=== PATIENT | male | born 1980 | race Caucasian/White ===

== ENCOUNTER 2018-08-08 13:16 | Emergency (ER) | payer MEDICAID ==
--- NOTE | 2018-08-08 16:19 | EDM.PDOC ---
ED HPI GENERAL MEDICAL PROBLEM - General Chief Complaint: Abdominal Pain Stated Complaint: RT SIDE PAIN Time Seen by Provider: 08/08/18 14:50 Source of Information: Reports: Patient - History of Present Illness INITIAL COMMENTS - FREE TEXT/NARRATIVE: 38-year-old otherwise healthy male presents with concerns of intermittent right upper quadrant and epigastric pain for several weeks. He presents today because the pain was particularly severe earlier in the day. He describes the pain as right upper quadrant that radiates towards the epigastrium, at times also seems to be in the epigastrium primarily. It is worse with eating and has caused a decrease in his oral intake. He denies any fevers or chills. He has no history of abdominal surgeries. No nausea or vomiting. No bloody or melanotic stools. He estimates he drinks approximately a sixpack of alcohol a day, no history of PUD. - Related Data Allergies Allergy/AdvReac Type Severity Reaction Status Date / Time doxycycline Allergy Rash Verified 08/08/18 13:42 Home Meds: Home Meds NK [No Known Home Meds] 08/08/18 [History] Past Medical History - Past Health History Medical/Surgical History: Denies Medical/Surgical History Social & Family History - Tobacco Use Smoking Status *Q: Current Every Day Smoker Years of Tobacco use: 15 Packs/Tins Daily: 1 - Caffeine Use Caffeine Use: Reports: None - Alcohol Use Days Per Week of Alcohol Use: 7 Number of Drinks Per Day: 6 Total Drinks Per Week: 42 - Recreational Drug Use Recreational Drug Use: Yes Recreational Drug Type: Reports: Marijuana/Hashish ED ROS GENERAL - Review of Systems Review Of Systems: See Below Constitutional: Reports: No Symptoms HEENT: Reports: No Symptoms Respiratory: Reports: No Symptoms Cardiovascular: Reports: No Symptoms Endocrine: Reports: No Symptoms GI/Abdominal: Reports: Abdominal Pain : Reports: No Symptoms Musculoskeletal: Reports: No Symptoms Skin: Reports: No Symptoms Neurological: Reports: No Symptoms Psychiatric: Reports: No Symptoms Hematologic/Lymphatic: Reports: No Symptoms Immunologic: Reports: No Symptoms ED EXAM, GI/ABD - Physical Exam Exam: See Below Exam Limited By: No Limitations General Appearance: Alert, No Apparent Distress Ears: Normal External Exam Nose: Normal Inspection Throat/Mouth: Normal Inspection Head: Atraumatic, Normocephalic Neck: Normal Inspection Respiratory/Chest: No Respiratory Distress, Lungs Clear Cardiovascular: Regular Rate, Rhythm GI/Abdominal Exam: Soft, Other (mild RUQ tenderness). No: Guarding Back Exam: Normal Inspection Extremities: Normal Inspection Neurological: Alert, Oriented Psychiatric: Normal Affect, Normal Mood Skin Exam: Warm, Dry Course - Vital Signs Last Recorded V/S: Last Vital Signs Temp 36.8 C 08/08/18 13:49 Pulse 88 08/08/18 14:41 Resp 16 08/08/18 14:41 BP 137/90 08/08/18 14:41 Pulse Ox 97 08/08/18 14:41 - Orders/Labs/Meds Orders: Active Orders 24 hr Category Date Time Status Abdomen Ltd [US] Stat Exams 08/08/18 15:11 Taken CHLAMYDIA/GC AMPLIFICATION Stat Lab 08/08/18 14:00 Received Labs: Laboratory Tests 08/08/18 08/08/18 08/08/18 Range/Units 14:41 14:41 15:32 WBC 9.8 (4.5-11.0) K/uL RBC 5.19 (4.30-5.90) M/uL Hgb 16.8 H (12.0-15.0) g/dL Hct 49.2 (40.0-54.0) % MCV 95 (80-98) fL MCH 32 H (27-31) pg MCHC 34 (32-36) % Plt Count 217 (150-400) K/uL Sodium 139 L (140-148) mmol/L Potassium 4.6 (3.6-5.2) mmol/L Chloride 100 (100-108) mmol/L Carbon Dioxide 28 (21-32) mmol/L Anion Gap 15.6 H (5.0-14.0) mmol/L BUN 8 (7-18) mg/dL Creatinine 1.0 (0.8-1.3) mg/dL Est Cr Clr Drug Dosing 116.45 mL/min Estimated GFR (MDRD) > 60 (>60) Glucose 89 (74-106) mg/dL Calcium 9.4 (8.5-10.1) mg/dL Total Bilirubin 1.0 (0.2-1.0) mg/dL AST 41 H (15-37) U/L ALT 76 (12-78) U/L Alkaline Phosphatase 86 (46-116) U/L Total Protein 7.8 (6.4-8.2) g/dL Albumin 3.9 (3.4-5.0) g/dL Globulin 3.9 H (2.3-3.5) g/dL Albumin/Globulin Ratio 1.0 L (1.2-2.2) Lipase 125 (73-393) U/L Urine Color [place] Urine Appearance Cloudy Urine pH 6.0 (4.5-8.0) Ur Specific [place] 1.015 (1.008-1.030) Urine Protein Trace (NEGATIVE) mg/dL Urine Glucose (UA) Normal (NEGATIVE) mg/dL Urine Ketones 50 H (NEGATIVE) mg/dL Urine Occult Blood Negative (NEGATIVE) Urine Nitrite Negative (NEGAITVE) Urine Bilirubin Moderate (NEGATIVE) Urine Urobilinogen 4 (NORMAL) mg/dL Ur Leukocyte Esterase Negative (NEGATIVE) Urine RBC 0-5 (0-5) Urine WBC 0-5 (0-5) Ur Epithelial Cells Rare Amorphous Sediment Rare Urine Bacteria Not seen Urine Mucus Rare - Re-Assessments/Exams Free Text/Narrative Re-Assessment/Exam: 38-year-old male, otherwise healthy presents to concerns of intermittent right upper quadrant epigastric pain. Abdominal labs are unremarkable. Initial concern for cholelithiasis, her ultrasound showed only fatty liver. Was having some urinary symptoms but UA is unremarkable. Although epigastric discomfort is present I believe this is not likely cardiac in nature nor is any workup for supradiaphragmatic process warranted. Given his alcohol intake inscription location of the pain, but this is most likely an alcoholic gastritis. We discussed symptomatic control with ranitidine and decreasing his alcohol intake. 08/08/18 16:23 Departure - Departure Time of Disposition: 16:14 Disposition: Home, Self-Care 01 Clinical Impression: Gastritis Qualifiers: Gastritis type: alcoholic Chronicity: unspecified Gastritis bleeding: without bleeding Qualified Code(s): K29.20 - Alcoholic gastritis without bleeding - Discharge Information *PRESCRIPTION DRUG MONITORING PROGRAM REVIEWED*: No *COPY OF PRESCRIPTION DRUG MONITORING REPORT IN PATIENT RENET[place]: No Referrals: PCP,None [Primary Care Provider] - Forms: ED Department Discharge Additional Instructions: We believe your symptoms are due to dyspepsia. Alcohol use contributes to this. You can trial a medication called ranitidine (zantac) for your symptoms We suggest you decrease your alcohol intake Make a follow up appointment with a primary doctor - My Orders Last 24 Hours: My Active Orders 08/08/18 14:00 CHLAMYDIA/GC AMPLIFICATION Stat 08/08/18 15:11 Abdomen Ltd [US] Stat - Assessment/Plan Last 24 Hours: My Active Orders 08/08/18 14:00 CHLAMYDIA/GC AMPLIFICATION Stat 08/08/18 15:11 Abdomen Ltd [US] Stat
[2018-08-11 07:47] LABS: CHLAMYDIA TRACHOMATIS, NAA Negative (Negative); NEISSERIA GONORRHOEAE, NAA Negative (Negative)
== END 2018-08-08 17:11 | disposition home or self-care (01) ==
LOC: JP.ED 13:16
DX: K29.20 Alcoholic gastritis without bleeding (principal); F17.210 Nicotine dependence, cigarettes, uncomplicated; Z88.1 Allergy status to other antibiotic agents
CPT/HCPCS: 36415; 76705; 80053; 81001; 83690; 85027; 87491; 87591; 99284-25

== ENCOUNTER 2018-09-29 12:47 | Emergency (ER) | payer MEDICAID ==
--- NOTE | 2018-09-29 14:43 | EDM.PDOC ---
<Nicole Melendez - Last Filed: 09/29/18 15:12> ED HPI GENERAL MEDICAL PROBLEM - General Chief Complaint: Drug or Alcohol Abuse Stated Complaint: VISION,LEFT SIDE NUMB,FAST HEART RATE Time Seen by Provider: 09/29/18 14:20 Source of Information: Reports: Patient History Limitations: Reports: No Limitations - History of Present Illness INITIAL COMMENTS - FREE TEXT/NARRATIVE: Paul Camejo is a 38 year old male who presents to the E.D. with concerns of a syncopal-like episode. He has a past history of alcohol abuse, denies any current medical problems and does not take any medications. He states he has not been to a healthcare provider in about 2 years. He states that yesterday he drank a 24 pack of beer and 1 pint of vodka. He then went to sleep for about 10 hours. This morning he woke up and went to work for a couple of hours then came home and drank one beer. He had an episode of emesis after the beer. He states he was then walking up the stairs and felt that he was going to faint. He states his vision went black, his left side went numb and his heart rate increased. He says the left sided weakness is intermittent and has been waxing and waning since the episode this AM. He states the episode only lasted a couple of seconds, but happened about 3 other times this morning. He has a daily frontal headache every morning that goes away with time. He states it has been a chronic issue for him. He does not treat the headache with anything. He states he has RUQ pain about every time he drinks and its about a 1 out of 10 on the pain scale. He denies any change of stool, changes in urination, or episodes of LOC. He states he normally does drink about 8-10 beers per day. He denies a syncopal episode in the past. He does smoke 1 pack of cigarettes per day and uses marijuana occasionally. He denies any past history of clotting disorders. denies Pain Score (Numeric/FACES): 0 - Related Data Allergies Allergy/AdvReac Type Severity Reaction Status Date / Time doxycycline Allergy Rash Verified 09/29/18 13:37 Home Meds: Home Meds NK [No Known Home Meds] 08/08/18 [History] Past Medical History - Past Health History Medical/Surgical History: Denies Medical/Surgical History Cardiovascular History: Reports: High Cholesterol Gastrointestinal History: Reports: Other (See Below) Other Gastrointestinal History: rrecent abdomenal pain Psychiatric History: Reports: Addiction, Other (See Below) Other Psychiatric History: etoh addiction Endocrine/Metabolic History: Reports: Other (See Below) Other Endocrine/Metabolic History: Lymes in past - Infectious Disease History Infectious Disease History: Reports: Chicken Pox Social & Family History - Tobacco Use Smoking Status *Q: Current Every Day Smoker Years of Tobacco use: 25 Packs/Tins Daily: 1 Used Tobacco, but Quit: No Second Hand Smoke Exposure: Yes - Caffeine Use Caffeine Use: Reports: Coffee, Tea - Alcohol Use Days Per Week of Alcohol Use: 7 Number of Drinks Per Day: 6 Total Drinks Per Week: 42 Date of Last Drink: 09/29/18 Time of Last Drink: 12:00 - Recreational Drug Use Recreational Drug Use: Yes Drug Use in Last 12 Months: Yes Recreational Drug Type: Reports: Marijuana/Hashish Recreational Drug Use Frequency: Monthly ED ROS GENERAL - Review of Systems Review Of Systems: ROS reveals no pertinent complaints other than HPI. - Physical Exam Exam: See Below Exam Limited By: No Limitations General Appearance: Alert, WD/WN, No Apparent Distress Ears: Normal External Exam, Normal Canal, Hearing Grossly Normal, Normal TMs Nose: Normal Inspection, Normal Mucosa, No Blood Throat/Mouth: Normal Inspection, Normal Lips, Normal Teeth, Normal Gums, Normal Oropharynx, Normal Voice Head Exam: Atraumatic, Normocephalic Neck: Normal Inspection, Supple, Non-Tender, Full Range of Motion Respiratory/Chest: No Respiratory Distress, Lungs Clear, Normal Breath Sounds, No Accessory Muscle Use Cardiovascular: Regular Rate, Rhythm, No Edema, No JVD, No Murmur GI/Abdominal: Soft, Non-Tender, No Organomegaly Neuro Exam (Abbreviated): Alert, Oriented, CN II-XII Intact, Normal Cognition, Normal Gait, No Motor/Sensory Deficits Back Exam: Normal Inspection Extremities: Normal Inspection, No Pedal Edema Psychiatric: Normal Affect, Normal Mood Skin Exam: Warm, Intact, Normal Color, No Rash Course - Vital Signs Last Recorded V/S: Last Vital Signs Temp 97.2 F 09/29/18 13:45 Pulse 91 09/29/18 13:45 Resp 16 09/29/18 13:45 BP 163/95 H 09/29/18 13:45 Pulse Ox 96 09/29/18 13:45 - Orders/Labs/Meds Labs: Laboratory Tests 09/29/18 09/29/18 09/29/18 Range/Units 14:26 14:26 14:26 WBC 7.5 (4.5-11.0) K/uL RBC 5.20 (4.30-5.90) M/uL Hgb 16.9 H (12.0-15.0) g/dL Hct 49.8 (40.0-54.0) % MCV 96 (80-98) fL MCH 33 H (27-31) pg MCHC 34 (32-36) % Plt Count 253 (150-400) K/uL Neut % (Auto) 70 H (36-66) % Lymph % (Auto) 22 L (24-44) % [place] % (Auto) 6 (2-6) % Eos % (Auto) 1 L (2-4) % Baso % (Auto) 1 (0-1) % PT 10.0 (9.5-12.0) sec INR 0.90 (0.80-1.20) D-Dimer, Quantitative < 100 (0.0-400.0) ng/mL Sodium 137 L (140-148) mmol/L Potassium 4.4 (3.6-5.2) mmol/L Chloride 101 (100-108) mmol/L Carbon Dioxide 25 (21-32) mmol/L Anion Gap 15.4 H (5.0-14.0) mmol/L BUN 8 (7-18) mg/dL Creatinine 1.0 (0.8-1.3) mg/dL Est Cr Clr Drug Dosing 116.45 mL/min Estimated GFR (MDRD) > 60 (>60) Glucose 82 (74-106) mg/dL Calcium 8.9 (8.5-10.1) mg/dL Total Bilirubin 0.5 (0.2-1.0) mg/dL AST 67 H (15-37) U/L ALT 134 H (12-78) U/L Alkaline Phosphatase 69 (46-116) U/L Total Protein 7.8 (6.4-8.2) g/dL Albumin 4.1 (3.4-5.0) g/dL Globulin 3.7 H (2.3-3.5) g/dL Albumin/Globulin Ratio 1.1 L (1.2-2.2) Lipase (73-393) U/L Urine Opiates Screen (NEGATIVE) Ur Oxycodone Screen (NEGATIVE) Urine Methadone Screen (NEGATIVE) Ur Propoxyphene Screen (NEGATIVE) Ur Barbiturates Screen (NEGATIVE) Ur Tricyclics Screen (NEGATIVE) Ur Phencyclidine Scrn (NEGATIVE) Ur Amphetamine Screen (NEGATIVE) U Methamphetamines Scrn (NEGATIVE) Urine MDMA Screen (NEGATIVE) U Benzodiazepines Scrn (NEGATIVE) U Cocaine Metab Screen (NEGATIVE) U Marijuana (THC) Screen (NEGATIVE) Ethyl Alcohol mg/dL 09/29/18 09/29/18 09/29/18 Range/Units 14:26 15:13 15:38 WBC (4.5-11.0) K/uL RBC (4.30-5.90) M/uL Hgb (12.0-15.0) g/dL Hct (40.0-54.0) % MCV (80-98) fL MCH (27-31) pg MCHC (32-36) % Plt Count (150-400) K/uL Neut % (Auto) (36-66) % Lymph % (Auto) (24-44) % [place] % (Auto) (2-6) % Eos % (Auto) (2-4) % Baso % (Auto) (0-1) % PT (9.5-12.0) sec INR (0.80-1.20) D-Dimer, Quantitative (0.0-400.0) ng/mL Sodium (140-148) mmol/L Potassium (3.6-5.2) mmol/L Chloride (100-108) mmol/L Carbon Dioxide (21-32) mmol/L Anion Gap (5.0-14.0) mmol/L BUN (7-18) mg/dL Creatinine (0.8-1.3) mg/dL Est Cr Clr Drug Dosing mL/min Estimated GFR (MDRD) (>60) Glucose (74-106) mg/dL Calcium (8.5-10.1) mg/dL Total Bilirubin (0.2-1.0) mg/dL AST (15-37) U/L ALT (12-78) U/L Alkaline Phosphatase (46-116) U/L Total Protein (6.4-8.2) g/dL Albumin (3.4-5.0) g/dL Globulin (2.3-3.5) g/dL Albumin/Globulin Ratio (1.2-2.2) Lipase 124 (73-393) U/L Urine Opiates Screen Negative (NEGATIVE) Ur Oxycodone Screen Negative (NEGATIVE) Urine Methadone Screen Negative (NEGATIVE) Ur Propoxyphene Screen Negative (NEGATIVE) Ur Barbiturates Screen Negative (NEGATIVE) Ur Tricyclics Screen Negative (NEGATIVE) Ur Phencyclidine Scrn Negative (NEGATIVE) Ur Amphetamine Screen Negative (NEGATIVE) U Methamphetamines Scrn Negative (NEGATIVE) Urine MDMA Screen Negative (NEGATIVE) U Benzodiazepines Scrn Negative (NEGATIVE) U Cocaine Metab Screen Negative (NEGATIVE) U Marijuana (THC) Screen Presumptive positive H (NEGATIVE) Ethyl Alcohol 80 mg/dL Departure - Departure Disposition: Home, Self-Care 01 Clinical Impression: Alcohol abuse - Discharge Information Referrals: PCP,None [Primary Care Provider] - Forms: ED Department Discharge Additional Instructions: Please follow-up with your [facility] addiction social worker for available treatment programs, call return to the emergency department worsening of symptoms <OfficerMacario - Last Filed: 09/29/18 16:02> - Physical Exam Text/Narrative:: Agree with exam below Departure - Departure Time of Disposition: 16:02 Condition: Fair - Assessment/Plan Plan: Assessment Acuity = acute on chronic Site and laterality = alcohol abuse and intoxication Etiology = EtOH Manifestations = none Location of injury = Home Lab values = CBC, CMP unremarkable except for elevated liver enzymes at 67 AST at 134 ALTs, alcohol is currently at 80 d-dimer was negative Plan I did review lab work with him talk to him about alcohol treatments he is a member of [facility] of which she is going to follow-up as services in the [facility] for further treatment help he declined detox at this time This note was dictated using EUDOWEB voice recognition software please call with any questions on syntax or grammar.
== END 2018-09-29 16:10 | disposition home or self-care (01) ==
LOC: JP.ED 12:48
DX: F10.129 Alcohol abuse with intoxication, unspecified (principal); Y90.4 Blood alcohol level of 80-99 mg/100 ml; E78.00 Pure hypercholesterolemia, unspecified; F17.210 Nicotine dependence, cigarettes, uncomplicated; Z88.1 Allergy status to other antibiotic agents
CPT/HCPCS: 36415; 80053; 80305; 83690; 85025; 85379; 85610; 99284; G0480

== ENCOUNTER 2021-06-13 16:05 | Emergency (ER) | payer MEDICAID ==
--- NOTE | 2021-06-13 17:37 | EDM.PDOC ---
<Francis Leon - Last Filed: 06/13/21 19:23> ED HPI GENERAL MEDICAL PROBLEM - General Chief Complaint: ENT Problem Stated Complaint: NOSE BLEEDS Time Seen by Provider: 06/13/21 17:23 Source of Information: Reports: Patient History Limitations: Reports: No Limitations - History of Present Illness INITIAL COMMENTS - FREE TEXT/NARRATIVE: Paul is a 40-year-old male presenting the ED with a multitude of complaints including intermittent epistaxis over the last several days. The patient recently underwent an angioplasty with multiple stent placement and is on Brilinta. He states over the last couple of nights he is had episodes of epistaxis resulting in hematemesis. He is also been experiencing sharp, stabbing chest pains since undergoing the angioplasty. The patient has been taking hydrocodone for knee pain after dropping a water heater on his knee. His last episode of epistaxis was at 1:30 this morning. He denies any fever, ch ills, pleurodynia, nausea, vomiting, or diaphoresis. His angioplasty was done at [facility] in [place], [place]. - Related Data Allergies Allergy/AdvReac Type Severity Reaction Status Date / Time doxycycline Allergy Rash Verified 09/29/18 13:37 Home Meds: Home Meds Aspirin 81 mg PO DAILY 06/13/21 [History] Nitroglycerin 0.4 mg SL ASDIRECTED 06/13/21 [History] Ticagrelor [Brilinta] 90 mg PO Q12HR 06/13/21 [History] atorvaSTATin [Lipitor] 80 mg PO BEDTIME 06/13/21 [History] carvediloL [Carvedilol] 6.25 mg PO BID 06/13/21 [History] oxyCODONE 5 mg PO Q6HR 06/13/21 [History] Past Medical History - Past Health History Medical/Surgical History: Denies Medical/Surgical History Cardiovascular History: Reports: High Cholesterol Gastrointestinal History: Reports: Other (See Below) Other Gastrointestinal History: rrecent abdomenal pain Psychiatric History: Reports: Addiction, Other (See Below) Other Psychiatric History: etoh addiction Endocrine/Metabolic History: Reports: Other (See Below) Other Endocrine/Metabolic History: Lymes in past - Infectious Disease History Infectious Disease History: Reports: Chicken Pox Social & Family History - Caffeine Use Caffeine Use: Reports: Coffee, Tea ED ROS GENERAL - Review of Systems Review Of Systems: See Below Constitutional: Reports: No Symptoms HEENT: Reports: Nosebleed (Intermittent epistaxis over the last 3 days. Patient is on Brilinta following angioplasty 2 weeks ago.) Respiratory: Reports: No Symptoms Cardiovascular: Reports: Chest Pain (Sharp, stabbing episodes of chest pain) Endocrine: Reports: No Symptoms GI/Abdominal: Reports: No Symptoms : Reports: No Symptoms Musculoskeletal: Reports: No Symptoms Skin: Reports: No Symptoms Neurological: Reports: No Symptoms Psychiatric: Reports: Anxiety Hematologic/Lymphatic: Reports: No Symptoms Immunologic: Reports: No Symptoms ED EXAM, GENERAL - Physical Exam Exam: See Below Exam Limited By: No Limitations General Appearance: Alert, No Apparent Distress, Anxious Eye Exam: Bilateral Eye: EOMI, PERRL Nose: Normal Inspection, Normal Mucosa, No Blood, Other (There is no clots identified in the nose. I do not see any areas on the nasal septum of bleeding. There is some inflammation of the nasal septum.) Throat/Mouth: Normal Inspection, Normal Oropharynx, Normal Voice, No Airway Compromise Head: Atraumatic, Normocephalic Neck: Normal Inspection, Supple Respiratory/Chest: No Respiratory Distress, Lungs Clear, Normal Breath Sounds Cardiovascular: Normal Peripheral Pulses, Regular Rate, Rhythm, No Murmur Peripheral Pulses: 2+: Radial (L), Radial (R), Posterior Tibial (L), Posterior Tibial (R) GI/Abdominal: Normal Bowel Sounds, Soft, Non-Tender Back Exam: Normal Inspection Extremities: Normal Inspection, Normal Range of Motion, Normal Capillary Refill Neurological: Alert, Oriented, Normal Cognition, No Motor/Sensory Deficits Psychiatric: Normal Affect, Normal Mood Skin Exam: Warm, Dry, Intact, Normal Color #1 Interpretation EKG Date: 06/13/21 Time: 17:30 Rhythm: NSR [place]: LAD-Left [place] Deviation P-Wave: Present QRS: Normal (Poor R wave progression in the precordial leads with late transition.) ST-T: Normal QT: Prolonged Comparison: NA - No Prior EKG Course - Re-Assessments/Exams Free Text/Narrative Re-Assessment/Exam: 06/13/21 18:57 is reviewed showing a leukocyte count of 10.5 with normal differential, hemoglobin of 15.3, hematocrit of 43.8 and a platelet count of 460,000. The comprehensive metabolic panel shows a sodium of 142, potassium 4.1, chloride 101, bicarbonate of 27, BUN of 14 with a creatinine of 1.1 and a glucose of 91. GFR is calculated greater than 60. Calcium is 9.1 with an AST of 26, ALT of 47, alkaline phosphatase of 126. Troponin is negative at less than 0.017. D-dimer is markedly elevated at 987.4. The patient is Covid, RSV, and influenza negative on the quadrivalent test. Elevation in his D-dimer despite being on Brilinta, the patient will go for a CT angiogram of the chest to rule out pulmonary emboli. There is nothing in his EKG to signify an acute infarct or injury. The patient is several weeks out from having 2 stents placed in his coronary arteries. 06/13/21 19:25 care of the patient be turned over to Dr. Pearson while awaiting for the patient undergo a CT angiogram of the chest for an elevated D-dimer. I anticipate that this will be negative and the patient will be able to be discharged home with atypical chest pain. The patient is on Brilinta he is not able to take any NSAIDs. He might benefit from a short course of steroids. Departure - Departure Disposition: Home, Self-Care 01 Clinical Impression: Recurrent epistaxis, Pleurisy Instructions: Nosebleed, Adult, [id number] Referrals: PCP,None [Primary Care Provider] - Forms: ED Department Discharge Care Plan Goals: Take prednisone as prescribed starting tomorrow morning, try to reduce smoking if possible, and use nasal moisturizers such as AYR spray to keep the nasal mucosa moist. Use external pressure if bleeding recurs and return if bleeding is persistent. Also consider rechecking with your regular doctor in 3 to 4 days if not improving satisfactorily on the prednisone. <Chris Pearson - Last Filed: 06/13/21 22:10> Course - Vital Signs Last Recorded V/S: Last Vital Signs Temp 98.3 F 06/13/21 17:34 Pulse 82 06/13/21 18:46 Resp 20 06/13/21 18:46 BP 141/90 H 06/13/21 18:46 Pulse Ox 98 06/13/21 18:46 - Orders/Labs/Meds Orders: Active Orders 24 hr Category Date Time Status Chest 1V Frontal [CR] Stat Exams 06/13/21 17:25 Taken Isolation [COMM] Stat Oth 06/13/21 17:25 Ordered EKG 12 Lead [EK] Routine Ther 06/13/21 17:24 Ordered Labs: Laboratory Tests 06/13/21 06/13/21 06/13/21 Range/Units 17:41 17:42 17:42 WBC 10.5 (4.5-11.0) K/uL RBC 4.78 (4.30-5.90) M/uL Hgb 15.3 H (12.0-15.0) g/dL Hct 43.8 (40.0-54.0) % MCV 92 (80-98) fL MCH 32 H (27-31) pg MCHC 35 (32-36) % Plt Count 460 H (150-400) K/uL Neut % (Auto) 58.9 (36-66) % Lymph % (Auto) 30.0 (24-44) % Bartholomew % (Auto) 8.9 H (2-6) % Eos % (Auto) 0.9 L (2-4) % Baso % (Auto) 1.3 H (0-1) % D-Dimer, Quantitative 987.44 H (0.0-500.0) ng/mL Sodium (140-148) mmol/L Potassium (3.6-5.2) mmol/L Chloride (100-108) mmol/L Carbon Dioxide (21-32) mmol/L Anion Gap (5.0-14.0) mmol/L BUN (7-18) mg/dL Creatinine (0.8-1.3) mg/dL Est Cr Clr Drug Dosing mL/min Estimated GFR (MDRD) (>60) Glucose (74-106) mg/dL Calcium (8.5-10.1) mg/dL Total Bilirubin (0.2-1.0) mg/dL AST (15-37) U/L ALT (12-78) U/L Alkaline Phosphatase (46-116) U/L Troponin I (0.000-0.056) ng/mL Total Protein (6.4-8.2) g/dL Albumin (3.4-5.0) g/dL Globulin (2.3-3.5) g/dL Albumin/Globulin Ratio (1.2-2.2) Influenza Type A RNA Negative (NEGATIVE) RSV RNA (INAAT) Negative (NEGATIVE) Influenza Type B RNA Negative (NEGATIVE) SARS-CoV-2 RNA (ZOILA) Negative (NEGATIVE) 06/13/21 Range/Units 17:42 WBC (4.5-11.0) K/uL RBC (4.30-5.90) M/uL Hgb (12.0-15.0) g/dL Hct (40.0-54.0) % MCV (80-98) fL MCH (27-31) pg MCHC (32-36) % Plt Count (150-400) K/uL Neut % (Auto) (36-66) % Lymph % (Auto) (24-44) % Bartholomew % (Auto) (2-6) % Eos % (Auto) (2-4) % Baso % (Auto) (0-1) % D-Dimer, Quantitative (0.0-500.0) ng/mL Sodium 142 (140-148) mmol/L Potassium 4.1 (3.6-5.2) mmol/L Chloride 101 (100-108) mmol/L Carbon Dioxide 27 (21-32) mmol/L Anion Gap 14.0 (5.0-14.0) mmol/L BUN 14 D (7-18) mg/dL Creatinine 1.1 (0.8-1.3) mg/dL Est Cr Clr Drug Dosing 103.79 mL/min Estimated GFR (MDRD) > 60 (>60) Glucose 91 (74-106) mg/dL Calcium 9.1 (8.5-10.1) mg/dL Total Bilirubin 0.9 D (0.2-1.0) mg/dL AST 26 (15-37) U/L ALT 47 (12-78) U/L Alkaline Phosphatase 126 H D (46-116) U/L Troponin I < 0.017 (0.000-0.056) ng/mL Total Protein 7.9 (6.4-8.2) g/dL Albumin 3.9 (3.4-5.0) g/dL Globulin 4.0 H (2.3-3.5) g/dL Albumin/Globulin Ratio 1.0 L (1.2-2.2) Influenza Type A RNA (NEGATIVE) RSV RNA (INAAT) (NEGATIVE) Influenza Type B RNA (NEGATIVE) SARS-CoV-2 RNA (ZOILA) (NEGATIVE) Meds: Medications Discontinued Medications Generic Name Dose Route Start Last Admin Trade Name Lopez PRN Reason Stop Dose Admin Sodium Chloride 100 mls @ 4 mls/sec 06/13/21 19:15 06/13/21 19:43 Normal Saline IV 4 mls/sec ASDIRECTED RICHARD Administration Iopamidol 100 ml 06/13/21 19:15 06/13/21 19:43 Iopamidol 755 Mg/Ml 100 Ml Bottle IV 100 ml . DIRECTED RICHARD Administration - Re-Assessments/Exams Free Text/Narrative Re-Assessment/Exam: 06/13/21 20:42 Care turned over from Dr. Leon pending CT of the chest with IV contrast. This showed mild diffuse inflammatory changes consistent with smoking, no PE or consolidations. Patient will be placed on 40 mg of prednisone daily for 5 days, and encouraged to keep his nose moist with AYR nasal spray. Departure - Departure Time of Disposition: 20:48 Sepsis Event Note (ED) - Focused Exam Vital Signs: Vital Signs Temp Pulse Resp BP Pulse Ox 06/13/21 18:46 82 20 141/90 H 98 06/13/21 17:48 88 14 145/82 H 98 06/13/21 17:34 98.3 F 85 14 162/94 H 98 06/13/21 17:12 98.3 F 85 14 162/94 H 98
[2021-06-13 18:19] LABS: CORONAVIRUS COVID-19 NAA NEGATIVE (NEGATIVE)
[2021-06-13] MEDS ORDERED: Sodium Chloride 0.9% 100 ML IV SCH (19:15)
[2021-06-13] MEDS ORDERED: Iopamidol 755 Mg/ML 100 ML Bottle IV SCH (19:15)
--- NOTE | 2021-06-13 20:36 | CRLCT ---
For Patients: As a result of the Century Cures Act, medical imaging exams and procedure reports are released immediately into your electronic medical record. You may view this report before your referring provider. If you have questions, please contact your health care provider. INDICATION: Chest pain. Elevated D-dimer. TECHNIQUE: CT chest PE was acquired with 100 cc Isovue 370 IV contrast. COMPARISON: None. FINDINGS: Heart and vasculature: No cardiomegaly, no pericardial effusion. There appears to be a right coronary artery stent present. No filling defects identified within the main, lobar, and contrast opacified portions of the segmental pulmonary arteries. Lungs and pleura: No evidence of pulmonary infarct. Calcified granuloma in the lingula. Scattered tiny centrilobular nodules throughout the lungs, suggestive of respiratory bronchiolitis-interstitial lung disease. Thyroid and lower neck: Subcentimeter thyroid nodules are noted. Mediastinum/deb: No lymphadenopathy. Chest wall: No axillary lymphadenopathy. Upper abdomen: No acute abnormality. Bones: No suspicious/aggressive focal osseous lesion. IMPRESSION: 1. No evidence of acute pulmonary embolus. 2. Scattered tiny centrilobular nodules throughout the lungs, suggestive of respiratory bronchiolitis-interstitial lung disease, query history of smoking. Please note that all CT scans at this facility use dose modulation, iterative reconstruction, and/or weight-based dosing when appropriate to reduce radiation dose to as low as reasonably achievable. Dictated by Papi Duckworth MD @ 06/13/2021 8:34:59 PM (Electronically Signed)
--- NOTE | 2021-06-14 09:13 | CR ---
CHEST: Portable 06/13/2021 at 5:56 PM CLINICAL HISTORY:Chest pain COMPARISON:None FINDINGS: There is a subcentimeter nodular focus in the lateral left midlung field. This may represent granuloma. No infiltrates or effusions are seen. Heart and pulmonary vascularity appear normal Impression: No acute cardio pelvic process Subcentimeter dense nodule in the left lateral midlung field. This may represent a granuloma. If patient has prior chest films this would be helpful. If submitted and addendum report will be issued If no prior chest films are available, noncontrast CT chest should be considered
== END 2021-06-13 20:57 | disposition home or self-care (01) ==
LOC: JP.ED 16:05
DX: R04.0 Epistaxis (principal); R09.1 Pleurisy; E78.00 Pure hypercholesterolemia, unspecified; Z88.1 Allergy status to other antibiotic agents; Z79.899 Other long term (current) drug therapy; Z79.82 Long term (current) use of aspirin; Z79.02 Long term (current) use of antithrombotics/antiplatelets; Z20.822 Contact with and (suspected) exposure to COVID-19
CPT/HCPCS: 0241U; 36415; 71045; 71275; 80053; 84484; 85025; 85379; 93005; 99284; Q9967